=== PATIENT | male | born 1965 | race Caucasian/White ===

== ENCOUNTER 2017-04-26 16:12 | Observation (INO) ==
--- NOTE | 2017-04-26 17:57 | Ultrasound Report ---
CLINICAL INFORMATION: History of dialysis fistula. Arm pain and swelling. TECHNIQUE: Grayscale and color flow Doppler spectral imaging COMPARISON: None. FINDINGS: Examination was performed emergently. This was not done by a orthopaedic technologist and a routine dialysis fistula study was not performed. The fistula is identified although the anatomy is not well the linear dilated. This appears to connect the brachial artery and cephalic vein. There is nonocclusive thrombus with in the fistula. This does not extend into the venous outflow tract. No other deep venous thrombosis. The venous system is otherwise negative. Routine dialysis fistula study may be helpful when clinically appropriate. IMPRESSION: 1. Dialysis fistula. There is nonocclusive thrombus within the fistula. 2. Deep venous system is otherwise negative. No acute deep venous thrombosis. Interpreted and Authenticated by: Nadir Jordan 04/26/17
[2017-04-26] MEDS ORDERED: HYDROCODONE/APAP 7.5/325MG TABLET PO ONE (18:13)
[2017-04-26 18:24] LABS: Basophils # (Auto) 0 K/mcL (0.0-0.3); Basophils % (Auto) 0.1 % (0.0-2.0); Eosinophils # (Auto) 0.4 K/mcL (0.0-0.7); Eosinophils % (Auto) 3.2 % (0.0-7.0); Granulocytes % (Auto) 70.4 % (38.0-78.0); Lymphocytes % (Auto) 15.7 % (15.5-49.0); Mean Cell Volume 91.5 fL (80.0-100.0); Mean Corpuscular HGB Conc 35.2 g/dL (31.0-36.0); Mean Corpuscular Hemoglobin 32.2 pg (26.0-34.0); Monocytes # (Auto) 1.4 K/mcL (0.1-0.9); Monocytes % (Auto) 10.6 % (1.0-12.0); Platelet Count 326 K/mcL (140-440); RBC 3.23 M/mcL (4.50-5.90); Red Cell Distribution Width 14.2 % (11.5-14.5)
[2017-04-26 18:25] LABS: ALT/SGPT 16 U/l (0-40); Albumin 3.2 gm/dL (3.2-5.2); Alkaline Phosphatase 99 U/L (39-117); Blood Urea Nitrogen 43 mg/dl (6-20)
--- NOTE | 2017-04-26 19:04 | Emergency Department Note ---
Extremity Problem HPI - General Chief complaint: Extremity Problem,Nontraumatic Stated complaint: Right arm swelling x 1 week Time Seen by Provider: 04/26/17 16:28 Source: patient Mode of arrival: ambulatory Limitations: no limitations - History of Present Illness HPI Narrative: 51-year-old male presents with right arm swelling, redness, warmth, and pain. Onset 2 days ago. Much worse today. States this morning woke up and his entire right arm was swollen from the shoulder down to the fingers. It is also red and warm over his fistula. Is afraid he has an infection. States about a year ago he had an infection that was very difficult to control he had to send him [place] to have surgery. States it started just like this. He has had chills at home for the last 24 hours and believes he has had a fever although he has not taken his temperature. He is a dialysis patient received dialysis yesterday. He sees Dr. Dolan. He denies any cough or cold symptoms. No abdominal pain. No rash. No dysuria or frequency. Denies any numbness or tingling to the upper extremities bilaterally. No trauma or injury to the affected arm. - Related Data Allergies Allergy/AdvReac Type Severity Reaction Status Date / Time latex Allergy Hives Verified 04/26/17 16:16 morphine Allergy Hives Verified 04/26/17 16:16 Penicillins Allergy Swelling Verified 04/26/17 16:16 Sulfa (Sulfonamide Allergy Rash Verified 04/26/17 16:16 Antibiotics) Review of Systems All systems ED: reviewed and negative except as stated. Past Medical History - Past Medical History Medical history: Reports: asthma, DM, hyperlipidemia, hypertension, obesity, renal disease Surgical history ED: Reports: orthopedic, other, other (Fistula placement) - Social History smoking status: Current every day smoker Packs per day: 1 Alcohol use: Reports: None Drug use: Reports: none Physical Exam Limitations: no limitations General appearance: alert, in no apparent distress Head: atraumatic, normocephalic, normal inspection Eye: Present: normal appearance. Absent: conjunctival injection ENT: normal exam, normal oropharynx, mucous membranes moist, TM's normal bilaterally, normal external ear exam Neck: Present: normal inspection, trachea midline. Absent: tenderness, lymphadenopathy Chest: Present: normal inspection, symmetric chest wall rise Respiratory: Present: normal lung sounds bilaterally. Absent: respiratory distress, wheezes, accessory muscle use Cardiovascular: Present: regular rate, normal heart sounds Extremities: Present: full ROM, normal capillary refill, other (No numbness or tingling.). Absent: normal inspection (Right upper extremity with diffuse edema throughout the arm. The upper bicep area has erythema that is circumferential. Warm to touch. This is surrounding the fistula. Patient also has tenderness throughout.) Neurological: Present: alert, oriented X3, normal gait. Absent: motor sensory deficit Psychiatric: Present: normal affect, normal mood Skin: Present: warm, dry, intact, normal color, erythema (Please see extremity assessment) Course Course Narrative: I did speak with Dr. Dolan regarding this patient. The clot is nonocclusive and he felt this could be from access. The patient does have a long history of cellulitis with difficulty responding to treatment. His white count is 13. [place] it best to admit this patient to receive IV antibiotics and close follow- up. I did speak with the hospitalist, Dr. Navarro who agrees to admit the patient. Dr. Dolan will consult. Patient was dialyzed yesterday and is due for dialysis tomorrow. Vital Signs Temperature 98.0 F 04/26/17 16:12 Pulse Rate 97 H 04/26/17 16:12 Respiratory Rate 18 04/26/17 16:12 Blood Pressure 210/91 04/26/17 16:12 Pulse Oximetry (%) 97 04/26/17 16:12 Temperature 98.0 F 04/26/17 16:12 Pulse Rate 97 H 04/26/17 16:12 Respiratory Rate 18 04/26/17 16:12 Blood Pressure 210/91 04/26/17 16:12 Pulse Oximetry (%) 97 04/26/17 16:12 Extremity Problem, Nontraumati - Lab Data Lab results reviewed: Yes I reviewed the patient's lab results. Result diagrams: 04/26/17 17:36 04/26/17 17:36 Lab Results 04/26/17 04/26/17 Range/Units 17:36 17:36 WBC 13.0 H (4.5-11.0) K/mcL RBC 3.23 L (4.50-5.90) M/mcL Hgb 10.4 L (13.5-16.5) g/dL Hct 29.6 L (41.0-55.0) % MCV 91.5 (80.0-100.0) fL MCH 32.2 (26.0-34.0) pg MCHC 35.2 (31.0-36.0) g/dL RDW 14.2 (11.5-14.5) % Plt Count 326 (140-440) K/mcL MPV 10.4 (7.4-10.4) fL Gran % 70.4 (38.0-78.0) % Lymph % (Auto) 15.7 (15.5-49.0) % [place] % (Auto) 10.6 (1.0-12.0) % Eos % (Auto) 3.2 (0.0-7.0) % Baso % (Auto) 0.1 (0.0-2.0) % Gran # 9.1 H (1.8-8.0) K/mcL Lymph # (Auto) 2.0 (1.5-4.8) K/mcL [place] # (Auto) 1.4 H (0.1-0.9) K/mcL Eos # (Auto) 0.4 (0.0-0.7) K/mcL Baso # (Auto) 0 (0.0-0.3) K/mcL Sodium 131 L (133-145) mmol/L Potassium 4.3 (3.3-5.1) mmol/L Chloride 92 L (96-108) mmol/L Carbon Dioxide 25 (22-30) mmol/L Anion Gap 14.0 (8-16) BUN 43 H (6-20) mg/dl Creatinine 4.9 H (0.7-1.2) mg/dl GFR Calculation 13 Glucose 360 H (70-105) mg/dL Calcium 8.8 (8.6-10.4) mg/dl Total Bilirubin < 0.2 (0.0-1.0) mg/dL AST 16 (0-37) U/l ALT 16 (0-40) U/l Alkaline Phosphatase 99 (39-117) U/L Total Protein 6.5 (5.9-8.4) gm/dL Albumin 3.2 (3.2-5.2) gm/dL Globulin 3.3 (2.2-3.7) gm/dL Albumin/Globulin Ratio 1.0 (1.0-2.3) - Radiology Data Radiology results reviewed: Yes I reviewed the patient's radiology results. Disposition Pt seen by IS TECHNICIAN/PA only: Yes Clinical Impression: Cellulitis of right upper extremity, Renal disease Disposition: Xfer As Inpt ([facility]) Condition: Fair Referrals: Bib Carney ARNP [Physician] - Jose Antonio Dolan MD [Physician] - Time of Disposition: 19:10
[2017-04-26] MEDS ORDERED: VANCOMYCIN 1,000 MG in 0.9 % SODIUM CHLORIDE 250 ML IV ONE (19:23)
[2017-04-26] MEDS ORDERED: HEPARIN/D5W 25,000 UNIT in PREMIX 1 BAG IV SCH ×2 (19:30→21:00)
[2017-04-26] MEDS ORDERED: HEPARIN 5,000 UNIT/ML VIAL IV ONE (20:22)
[2017-04-26] MEDS ORDERED: ACETAMINOPHEN 1,000 MG/100 ML BOTTLE IV PRN (21:00)
[2017-04-26] MEDS ORDERED: VANCOMYCIN PER PHARMACY IV SCH (21:00)
[2017-04-26] MEDS ORDERED: ONDANSETRON 4 MG/2 ML VIAL IV PRN (21:00)
[2017-04-26] MEDS ORDERED: ACETAMINOPHEN 325 MG TABLET PO PRN (21:00)
[2017-04-26] MEDS ORDERED: SENNOSIDES/DOCUSATE SODIUM 1 TAB TABLET PO SCH (21:00)
[2017-04-26] MEDS ORDERED: CEFEPIME 1 GM VIAL IV SCH (21:00)
[2017-04-26] MEDS ORDERED: PIPERACILLIN SODIUM/TAZOBACTAM 3.375 GM in DEXTROSE 5% IN WATER 50 ML IV SCH (21:00)
[2017-04-26 21:53] LABS: Amphetamine Screen,Urine NONE DETECTED (NONDETECTED); Benzodiazepines Screen,Urine NONE DETECTED (NONDETECTED); Cocaine Screen,Urine NONE DETECTED (NONDETECTED); Opiate Screen,Urine NONE DETECTED (NONDETECTED); Oxycodone, Urine Screen NONE DETECTED (NONDETECTED)
[2017-04-26] MEDS: hydrALAZINE 20 MG/ML VIAL IV PRN (22:37)
[2017-04-26] MEDS: fentaNYL 100 MCG/2 ML VIAL IV PRN (22:37)
[2017-04-26] MEDS: DOCUSATE SODIUM 100 MG CAPSULE PO SCH (22:38)
[2017-04-26] MEDS: 0.9 % SODIUM CHLORIDE 10 ML SYRINGE IV SCH (22:38)
[2017-04-26] MEDS: HYDROcodone/APAP 5/325MG TABLET PO PRN (22:39)
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
[2017-04-27] MEDS: hydrALAZINE 20 MG/ML VIAL IV PRN ×3 (00:10→06:25)
[2017-04-27] MEDS: fentaNYL 100 MCG/2 ML VIAL IV PRN ×2 (02:10→06:25)
[2017-04-27] MEDS: HYDROcodone/APAP 5/325MG TABLET PO PRN ×3 (02:10→09:58)
[2017-04-27] MEDS ORDERED: OXYMETAZOLINE 1 SPRAY BOTTLE NAS PRN (02:22)
[2017-04-27] MEDS: 0.9 % SODIUM CHLORIDE 10 ML SYRINGE IV SCH (05:13)
[2017-04-27 06:41] LABS: Mean Cell Volume 92.5 fL (80.0-100.0); Mean Corpuscular HGB Conc 34.8 g/dL (31.0-36.0); Mean Corpuscular Hemoglobin 32.2 pg (26.0-34.0); Platelet Count 322 K/mcL (140-440); RBC 3.31 M/mcL (4.50-5.90); Red Cell Distribution Width 14.7 % (11.5-14.5)
[2017-04-27] MEDS: DOCUSATE SODIUM 100 MG CAPSULE PO SCH (07:52)
[2017-04-27 07:56] LABS: ALT/SGPT 15 U/l (0-40); Albumin 3.1 gm/dL (3.2-5.2); Albumin/Globulin Ratio 0.9 (1.0-2.3); Alkaline Phosphatase 95 U/L (39-117); Bilirubin,Direct < 0.2 mg/dL (0.0-0.3); Blood Urea Nitrogen 46 mg/dl (6-20); Gamma Glutamyl Transpeptidase 83 U/L (8-61); Uric Acid 6.1 mg/dL (2.5-8.0)
[2017-04-27] MEDS ORDERED: DEXTROSE 50% 50 ML VIAL IV PRN (08:22)
[2017-04-27] MEDS ORDERED: DEXTROSE 31 GM ORAL.SUSP PO PRN (08:22)
[2017-04-27 08:23] LABS: Eosinophils % (Manual) 2 % (0-7); Lymphocytes % 22 % (15-49); Monocytes % (Manual) 6 % (1-12); Platelet Estimate NORMAL (NORMAL); RBC Morphology NORMAL (NORMAL); Segmented Neutrophils % 70 % (38-78)
[2017-04-27] MEDS ORDERED: MULTIVIT,THER IRON,CA,FA & MIN 1 TABLET PO SCH (09:00)
[2017-04-27] MEDS ORDERED: CEFEPIME 1 GM VIAL IV SCH (09:00)
[2017-04-27] MEDS ORDERED: VANCOMYCIN 1,500 MG in 0.9 % SODIUM CHLORIDE 500 ML IV SCH (10:00)
[2017-04-27] MEDS ORDERED: INSULIN GLARGINE, HUMAN 1 UNIT/0.01 ML SQ ONE (10:28)
--- NOTE | 2017-04-27 10:43 | Discharge Summary ---
Medical - DS: Prov Patient information: Note initiated : 04/27/17 at 10:41 am Service Date, if different from initiated Date: [] Patient: Leonel Ace a 51 y/o M admitted on 04/26/17 for Right arm swelling x 1 week. Chief Complaint: [] Date of admission: 04/26/17 20:58 Discharge date: 04/27/17 Primary care physician: Julia Lackey Consults: 04/26/17 19:01 Consult to Physician [CONS] Stat Comment: Consulting Provider: Arsen Cooper Reason For Exam: Physician to Consult Consult to Physician [CONS] Stat Comment: Consulting Provider: Jose Antonio Dolan Reason For Exam: Physician to Consult Medical - DS: Meds - Discharge Medications Prescriptions: Apixaban [Eliquis] 2.5 mg PO BID #60 tab Sulfamethoxazole/Trimethoprim [Bactrim Ds] 1 tab PO BID #20 tab Active and Home Medications: Home Medications Apixaban [Eliquis] 2.5 mg PO BID #60 tab 04/27/17 [Rx Last Taken Unknown] Sulfamethoxazole/Trimethoprim [Bactrim Ds] 1 tab PO BID #20 tab 04/27/17 [Rx Last Taken Unknown] Medical - DS: Hosp Hospital course: DISCHARGE DIAGNOSIS * right arm fistula thrombosis-initially managed on full dose heparin drip. Patient discharging on anticoagulation on Apixiban 2.5 twice a day as per nephrology(Dr. Dolan) recommendations * right arm cellulitis-initially managed on cefepime and Vanco dramatic response and resolution of erythema and swelling. Patient discharging on IV vancomycin infusion during dialysis along with Bactrim DS as per nephrology recommendation * pain management on as the hydrocodone * Pre-existing medical condition management on home meds Brief hospital course HISTORY OF CHIEF COMPLAINT: Leonel is a 51-year-old with known history of ESRD on hemodialysis. He comes to [facility] emergency room with right arm swelling along with pain and redness, associated with shaking chills. Symptoms started roughly a week ago with increasing swelling around the fistula site and subsequently redness that extended up to the mid arm. He had 2 dialyses done in the last one week and he failed to mention to care providers about the worsening symptoms. This morning he woke up with intense pain, along with swelling that extended from over the palm, all the way to the shoulder, along with redness and swelling, limiting movement at the shoulder and elbow joint. He had associated fever with shaking chills, along with headache and sweats. With increasing concerns, he came to the [facility] ER. Initial workup was significant for white count of 13,000 along with Doppler ultrasound of the fistula site reveals microabscesses and a nonocclusive thrombus at the fistula site. Subsequently, Hospitalist Service was consulted. Blood cultures were drawn. At the time of evaluation, the patient is alert and oriented. He is accompanied with his mother. He was able to provide and endorse history as above. He denies diarrhea, dysuria, IV drug use. He denies photophobia, neck stiffness, but endorses to headache. He does have intermittent cough. He smokes a pack a day. Other than that, he denies joint pain, skin rash, ulcers, or boils. 04/27-patient shows remarkable improvement within resolution of erythema and tenderness and improve mobility at the rt elbow joint. Case discussed with nephrology. Recommend discharging patient while nephrology will continue IV vancomycin during dialysis. Also financial cost analyst recommendations Bactrim DS for empiric coverage for gram-negative organism. Patient will be discharged as per nephrology recommendation with outpatient follow-up for continued dialysis and antibiotic infusion during dialysis. Discharge diagnosis: . - Time Spent with Patient Total time spent providing and/or coordinating discharge services: Greater than 30 minutes Medical - DS: Exam - Constitutional Vitals: Vital Signs Temp Pulse Pulse Resp BP BP Pulse Ox 04/27/17 06:52 98.3 F 18 186/69 98 04/27/17 04:05 182/95 04/27/17 04:00 98.8 F 98 H 22 182/95 95 04/27/17 02:05 172/94 04/27/17 00:09 100.0 F H 101 H 177/77 95 04/27/17 00:00 100.0 F H 100 H 20 177/77 95 04/26/17 22:01 95 H 199/95 95 04/26/17 21:15 95 H 202/86 94 04/26/17 21:00 99.3 F H 96 H 22 202/86 95 04/26/17 20:58 99.3 F H 96 H 22 202/86 95 04/26/17 20:50 97 H 18 97 04/26/17 16:12 98.0 F 97 H 18 210/91 97 Intake and Output 04/26/17 04/27/17 04/27/17 21:59 05:59 13:59 Intake Total 610 / 610 1080 / 1080 1180 / 1180 Output Total 500 / 500 350 / 350 1200 / 1200 Balance 110 / 110 730 / 730 -20 / -20 Intake: IV 250 / 250 Heparin/D5w 25,000 Unit In 4 / 4 Premix 1 Bag @ 14 UNIT/KG/HR 29 .97 mls/hr IV .[id number] [facility] Rx#: [id number] Vancomycin 1,000 mg In Sodium 246 / 246 Chloride 0.9% 250 ml @ 250 mls/ hr IV ONCE ONE Rx#:[id number] Oral 360 / 360 1080 / 1080 1180 / 1180 Output: Void Amount 500 / 500 350 / 350 1200 / 1200 Other: Meal sandwhich Nourishment/Supplement Breakfast Percent of Meal Consumed 100% 100% 100% Feeding Ability Independent Independent Independent Stool Size Moderate Stool Color Brown Stool Consistency Dry and Hard # Voids 2 1 # Bowel Movements 1 Weight 233 lb 9.6 oz Medical - DS: Data Labs on day of discharge: Labs from last 24 hours 04/27/17 04/27/17 04/26/17 04:15 04:15 21:28 WBC 13.6 H RBC 3.31 L Hgb 10.6 L Hct 30.6 L MCV 92.5 MCH 32.2 MCHC 34.8 RDW 14.7 H Plt Count 322 MPV 11.2 H Gran % Lymph % (Auto) Dewitt % (Auto) Eos % (Auto) Baso % (Auto) Gran # Lymph # (Auto) Dewitt # (Auto) Eos # (Auto) Baso # (Auto) Total Counted 100 Seg Neutrophils % 70 Band Neutrophils % Not Reportable Lymphocytes % 22 Monocytes % (Manual) 6 Eosinophils % (Manual) 2 Platelet Estimate Normal RBC Morphology Normal ESR PT INR APTT VBG Lactic Acid Sodium 133 Potassium 4.4 Chloride 93 L Carbon Dioxide 20 L Anion Gap 20.0 H BUN 46 H Creatinine 5.2 H* GFR Calculation 12 Glucose 393 H Uric Acid 6.1 Calcium 8.8 Phosphorus 5.9 H Magnesium 1.9 Total Bilirubin < 0.2 Direct Bilirubin < 0.2 GGT 83 H AST 17 ALT 15 Alkaline Phosphatase 95 Lactate Dehydrogenase 262 H C-Reactive Protein Total Protein 6.4 Albumin 3.1 L Globulin 3.3 Albumin/Globulin Ratio 0.9 L Triglycerides 582 H Opiates Screen Urine Opiates Screen None detected Ur Opiates Confirm Not Reportable Ur Oxycodone Screen None detected Methadone Urine Methadone Screen None detected Ur Methadone Confirm Not Reportable Propoxyphene & Metabol Methaqualone Barbiturate Screen Ur Barbiturates Screen None detected Ur Barbiturate Confirm Not Reportable Phencyclidine Screen Ur Phencyclidine Scrn None detected Urine PCP Confirm Not Reportable Amphetamines Screen Ur Amphetamines Screen None detected U Amphetamines Confirm Not Reportable Benzodiazepines Screen U Benzodiazepines Scrn None detected U Benzodiazepine Confm Not Reportable Cocaine Screen Urine Cocaine Screen None detected Urine Cocaine Confirm Not Reportable U Cannabinoids Confirm Not Reportable Marijuana (THC) Screen U Marijuana (THC) Screen None detected Drug Screen Specimen 04/26/17 04/26/17 04/26/17 20:48 19:16 17:36 WBC RBC Hgb Hct MCV MCH MCHC RDW Plt Count MPV Gran % Lymph % (Auto) Dewitt % (Auto) Eos % (Auto) Baso % (Auto) Gran # Lymph # (Auto) Dewitt # (Auto) Eos # (Auto) Baso # (Auto) Total Counted Seg Neutrophils % Band Neutrophils % Lymphocytes % Monocytes % (Manual) Eosinophils % (Manual) Platelet Estimate RBC Morphology ESR PT INR APTT VBG Lactic Acid 1.0 Sodium Potassium Chloride Carbon Dioxide Anion Gap BUN Creatinine GFR Calculation Glucose Uric Acid Calcium Phosphorus Magnesium Total Bilirubin Direct Bilirubin GGT AST ALT Alkaline Phosphatase Lactate Dehydrogenase C-Reactive Protein 5.0 H Total Protein Albumin Globulin Albumin/Globulin Ratio Triglycerides Opiates Screen Cancelled Urine Opiates Screen Ur Opiates Confirm Ur Oxycodone Screen Methadone Cancelled Urine Methadone Screen Ur Methadone Confirm Propoxyphene & Metabol Cancelled Methaqualone Cancelled Barbiturate Screen Cancelled Ur Barbiturates Screen Ur Barbiturate Confirm Phencyclidine Screen Cancelled Ur Phencyclidine Scrn Urine PCP Confirm Amphetamines Screen Cancelled Ur Amphetamines Screen U Amphetamines Confirm Benzodiazepines Screen Cancelled U Benzodiazepines Scrn U Benzodiazepine Confm Cocaine Screen Cancelled Urine Cocaine Screen Urine Cocaine Confirm U Cannabinoids Confirm Marijuana (THC) Screen Cancelled U Marijuana (THC) Screen Drug Screen Specimen Cancelled 04/26/17 04/26/17 04/26/17 17:36 17:36 17:36 WBC RBC Hgb Hct MCV MCH MCHC RDW Plt Count MPV Gran % Lymph % (Auto) Dewitt % (Auto) Eos % (Auto) Baso % (Auto) Gran # Lymph # (Auto) Dewitt # (Auto) Eos # (Auto) Baso # (Auto) Total Counted Seg Neutrophils % Band Neutrophils % Lymphocytes % Monocytes % (Manual) Eosinophils % (Manual) Platelet Estimate RBC Morphology ESR 88 H PT 11.8 L INR 0.9 APTT 33 VBG Lactic Acid Sodium 131 L Potassium 4.3 Chloride 92 L Carbon Dioxide 25 Anion Gap 14.0 BUN 43 H Creatinine 4.9 H GFR Calculation 13 Glucose 360 H Uric Acid Calcium 8.8 Phosphorus Magnesium Total Bilirubin < 0.2 Direct Bilirubin GGT AST 16 ALT 16 Alkaline Phosphatase 99 Lactate Dehydrogenase C-Reactive Protein Total Protein 6.5 Albumin 3.2 Globulin 3.3 Albumin/Globulin Ratio 1.0 Triglycerides Opiates Screen Urine Opiates Screen Ur Opiates Confirm Ur Oxycodone Screen Methadone Urine Methadone Screen Ur Methadone Confirm Propoxyphene & Metabol Methaqualone Barbiturate Screen Ur Barbiturates Screen Ur Barbiturate Confirm Phencyclidine Screen Ur Phencyclidine Scrn Urine PCP Confirm Amphetamines Screen Ur Amphetamines Screen U Amphetamines Confirm Benzodiazepines Screen U Benzodiazepines Scrn U Benzodiazepine Confm Cocaine Screen Urine Cocaine Screen Urine Cocaine Confirm U Cannabinoids Confirm Marijuana (THC) Screen U Marijuana (THC) Screen Drug Screen Specimen 04/26/17 17:36 WBC 13.0 H RBC 3.23 L Hgb 10.4 L Hct 29.6 L MCV 91.5 MCH 32.2 MCHC 35.2 RDW 14.2 Plt Count 326 MPV 10.4 Gran % 70.4 Lymph % (Auto) 15.7 Dewitt % (Auto) 10.6 Eos % (Auto) 3.2 Baso % (Auto) 0.1 Gran # 9.1 H Lymph # (Auto) 2.0 Dewitt # (Auto) 1.4 H Eos # (Auto) 0.4 Baso # (Auto) 0 Total Counted Seg Neutrophils % Band Neutrophils % Lymphocytes % Monocytes % (Manual) Eosinophils % (Manual) Platelet Estimate RBC Morphology ESR PT INR APTT VBG Lactic Acid Sodium Potassium Chloride Carbon Dioxide Anion Gap BUN Creatinine GFR Calculation Glucose Uric Acid Calcium Phosphorus Magnesium Total Bilirubin Direct Bilirubin GGT AST ALT Alkaline Phosphatase Lactate Dehydrogenase C-Reactive Protein Total Protein Albumin Globulin Albumin/Globulin Ratio Triglycerides Opiates Screen Urine Opiates Screen Ur Opiates Confirm Ur Oxycodone Screen Methadone Urine Methadone Screen Ur Methadone Confirm Propoxyphene & Metabol Methaqualone Barbiturate Screen Ur Barbiturates Screen Ur Barbiturate Confirm Phencyclidine Screen Ur Phencyclidine Scrn Urine PCP Confirm Amphetamines Screen Ur Amphetamines Screen U Amphetamines Confirm Benzodiazepines Screen U Benzodiazepines Scrn U Benzodiazepine Confm Cocaine Screen Urine Cocaine Screen Urine Cocaine Confirm U Cannabinoids Confirm Marijuana (THC) Screen U Marijuana (THC) Screen Drug Screen Specimen Medical - DS: A/P - Patient/Caregiver Discharge Instructions Activity: increase activity as tolerated Diet: Renal/Consistent Carbs Additional Instructions: Follow-up dialysis is scheduled vancomycin infusion as per Dr. Dolan during dialysis Bactrim DS as per Dr. Dolan for additional 12 days continue Eliquis 2.5 mg BIDas per nephrology recommendation for fistula thrombosis Follow-up PCP in 7 days Return to ER if worsening right arm swelling and pain redness or shaking chills. Prescriptions: Apixaban [Eliquis] 2.5 mg PO BID #60 tab Sulfamethoxazole/Trimethoprim [Bactrim Ds] 1 tab PO BID #20 tab - Follow up Plan Follow up with: Bib Carney ARNP [Physician] - 05/02/17 1:10 pm (At 12:15 pm please check in at the desk on the first floor for an appointment at [facility] to check your coumadin level before your PCP appt. ) Jose Antonio Dolan MD [Physician] - (Continue with your current dialysis schedule.) Disposition: Home, Self-Care Prognosis: Fair Rehab Potential: Fair I certify that the patient requires SNF services: Yes Overall status at discharge: patient is progressing back to baseline Medical - DS: Qual - VTE Deep Vein Thrombosis/Pulmonary Embolism Present on Admission: No
[2017-04-27] MEDS ORDERED: INSULIN LISPRO 1 UNIT/0.01 ML UNIT SQ SCH (11:30)
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
== END 2017-04-27 11:10 | disposition home or self-care (01) ==
LOC: ED 16:12 → ICU 20:50 → INTOOBSV 20:58 → ICU 20:58
PROVIDERS: ADMIT Internal Medicine; ATTEND Internal Medicine